=== PATIENT | female | born 1960 | race Caucasian/White ===

== ENCOUNTER 2022-03-07 15:34 | Emergency (ER) | payer MEDICAID, SELFPAY ==
[2022-03-07 15:56] VITALS: BP 121/83; PULSE 101; RESP 18; TEMP 36.7; O2SAT 100
--- NOTE | 2022-03-07 16:21 | ED.SKABFB ---
HPI - Skin/Abscess/Foreign Bdy General Chief complaint: Skin/Abscess/Foreign Body Stated complaint: Rash on chest and back Time Seen by Provider: 03/07/22 16:22 Source: patient and RN notes reviewed Mode of arrival: ambulatory Limitations: no limitations History of Present Illness HPI narrative: 61-year-old female presents to the [facility] with complaints of a rash to her chest and back. Rash started to her lower abdomen where she was doing Lovenox injections. Tried calling her oncologist in [place] and was told to take Benadryl. Has indurated skin to the lower abdomen where she was doing Lovenox injections. Currently going through chemo. Called her oncologist was told to take Benadryl. States her rash keeps getting worse MD complaint: rash Related Data Home Medications Medication Instructions Recorded Confirmed enoxaparin 80 mg/0.8 mL mg 03/07/22 subcutaneous syringe Allergies Allergy/AdvReac Type Severity Reaction Status Date / Time adhesive tape Allergy Rash Verified 03/07/22 16:32 sertraline [From Zoloft] Allergy Swelling Verified 03/07/22 16:32 of Lip/Tongue/Throat Review of Systems Review of Systems: All systems reviewed & are unremarkable except as noted in HPI and below Constitutional: Constitutional: Reports no additional constitutional complaints, Denies chills and Denies fever(s) Eyes: Eyes: Reports no additional eye complaints ENT: Reports system reviewed and no additional complaints, except as documented Cardiovascular: Cardiovascular: Reports no additional cardiovascular complaints Respiratory: Respiratory: Reports no additional respiratory complaints Gastrointestinal: Gastrointestinal: Reports no additional gastrointestinal complaints Musculoskeletal: Musculoskeletal: Reports no additional musculoskeletal complaints Integumentary/Breasts: Skin/Breast: Reports as per HPI and Reports rash Neurologic: Reports system reviewed and no additional complaints, except as documented Psychiatric: Psychiatric: Reports no additional psychiatric complaints Allergic/Immunologic: Allergic/Immunologic: Reports no additional allergic/immunologic complaints PMFSH Comments At the time of my signature, I reviewed and agree with the nursing past medical, surgical, social, and family history. There is no relevant family history pertinent to the patient complaint. Exam Const: General: healthy appearing, no acute distress and alert Nutritional Appearance: well nourished Orientation/consciousness: patient oriented x3 Limitations: no limitations HENMT: Head: normal to inspection Ears: external ears normal Eyes: General: appearance normal, both eyes and all related structures Pupils: Equal, round and reactive pupils present Neck: Neck: normal visual inspection, no lymphadenopathy and no meningeal signs Chest: Chest palpation & inspection: normal inspection of the chest Resp: Effort & Inspection: normal respiratory effort and no use of accessory muscles Auscultation: clear to auscultation bilaterally, no crackles, no rales, no rhonchi and no wheezes Cardio: Rate: regular rate Rhythm: regular rhythm GI: GI Palp: Yes Soft to palpation and No Tenderness to palpation present (GI) Back/Spine/Pelvis: Cervical Spine: normal cervical lordosis Thoracic/Lumbar Spine: thoracic and lumbar spine normal to inspection Skin: General skin exam: normal color Wounds: no wounds Other: Red indurated, peeling without increased warmth to the lower pannus. Hives noted to the abdomen, chest and back that patient describes as extremely itchy. Neuro: General: patient oriented x3, moves all extremities, no meningeal signs and no focal motor deficits Cranial nerves: Yes Equal, round and reactive pupils present Speech: normal speech Gait exam (Neuro): Normal gait present Extrem: General: normal to inspection, full ROM and capillary refill normal Psych: Appearance: grossly normal and well kempt Mental Sta
== END 2022-03-07 16:41 | disposition home or self-care (01) ==
PROVIDERS: Emergency Provider Nurse Practitioner
DX: L50.9 Urticaria, unspecified (principal); L30.9 Dermatitis, unspecified; C78.7 Secondary malignant neoplasm of liver and intrahepatic bile duct; Z85.038 Personal history of other malignant neoplasm of large intestine
CPT/HCPCS: 99203; G0463

== ENCOUNTER 2022-05-14 06:53 | Outpatient (CLI) | payer OTHER, SELFPAY ==
--- NOTE | ~2022-05-14 | XR_ITS ---
EXAM: XR hand RT min 3V DATE: 05/14/2022 07:23 HISTORY: arthritis of hand, SWELLING 3RD DIGIT, GENERAL PAIN . COMPARISON: None available. FINDINGS: Slightly decreased mineralization. No fracture or dislocation. No lytic or blastic lesion. Osteoarthritic changes in the DIP and PIP joints of the fingers, the first interphalangeal joint, an d the trapezium metacarpal joint. No erosion or periosteal change. Soft tissues within normal limits. IMPRESSION: Polyarticular osteoarthritis of the right hand. Reviewed, dictated and finalized at location K. INFORMATICS
== END 2022-05-14 06:54 | disposition home or self-care (01) ==
PROVIDERS: PCP Physician Assistant; Visit Provider Physician Assistant
DX: M19.041 Primary osteoarthritis, right hand (principal)
CPT/HCPCS: 73130

== ENCOUNTER 2022-10-15 14:50 | Outpatient (CLI) | payer OTHER, SELFPAY ==
--- NOTE | ~2022-10-15 | MM_ITS ---
EXAMINATION: MM screening chung BI w glenys HISTORY: Screening mammogram, family history of breast cancer in her mother. TECHNIQUE: Craniocaudal and mediolateral oblique 3-D tomosynthesis images were obtained and synthetic 2-D images were generated. CAD analysis was submitted and interpreted. COMPARISON: No prior mammogram is available for comparison at this institution. BREAST PARENCHYMAL COMPOSITION: There are scattered areas of fibroglandular density. FINDINGS: RIGHT BREAST: There is a possible mass in the middle third of the central breast in line with the nip ple axis. LEFT BREAST: An asymmetry is present in the middle third of the breast in line with the nipple axis o n the craniocaudal view. IMPRESSION: 1. Bilateral breast findings as above. which may represent the patient's baseline however no comparis on is currently available. 2. Comparison with prior mammograms is necessary. BI-RADS Category 0: Incomplete: Needs comparison with prior mammograms. Reviewed, dictated and finalized at location A. IMPRESSION: 1. Bilateral breast findings as above. which may represent the patient's baseli ne however no comparison is currently available. 2. Comparison with prior mammograms is necessary. BI-RADS Category 0: Incomplete: Needs comparison with prior mammograms.
== END 2022-10-15 14:51 | disposition home or self-care (01) ==
LOC: ANHIMG 14:52
PROVIDERS: PCP Physician Assistant; Visit Provider Physician Assistant
DX: Z12.31 Encounter for screening mammogram for malignant neoplasm of breast (principal); R92.8 Other abnormal and inconclusive findings on diagnostic imaging of breast
CPT/HCPCS: 77063; 77067

== ENCOUNTER 2023-12-11 10:53 | Emergency (ER) | payer MEDICARE, MEDICAID, SELFPAY ==
--- NOTE | ~2023-12-11 | CT_ITS ---
EXAMINATION: CT cervical spine wo con DATE: 12/11/2023 11:17 INDICATION: Fall with neck pain TECHNIQUE: Computed tomography (CT) of the cervical spine was performed without intravenous contrast. Automated exposure control and iterative reconstruction technique were employed. The dose-length pro duct was 430.50 mGy-cm. COMPARISON: None FINDINGS: Moderate atlantoaxial osteoarthritis. Mild lower cervical kyphosis and 1 mm retrolisthesis C6 on C7. Vertebral body heights are normal. No acute fracture. Moderate disc height loss at C5-C6 and mild dis c height loss at C4-C5 and C7-T1. Mild biapical pleural-parenchymal scarring. Cervical soft tissues a re unremarkable. The following disc levels are specifically discussed: C2-C3: The disc does not extend beyond the endplate margin. There is mild right uncovertebral joint o steoarthritis. There is severe bilateral facet joint osteoarthritis. There is minimal right neural fo raminal stenosis. There is no central canal stenosis. C3-C4: Small central disc protrusion. There is mild right uncovertebral joint osteoarthritis. There i s severe bilateral facet joint osteoarthritis. There is mild left and minimal right neural foraminal stenosis. There is minimal central canal stenosis. C4-C5: Disc is mildly bulging. There is mild bilateral uncovertebral joint osteoarthritis. There is m ild right and severe left facet joint osteoarthritis. There is mild left neural foraminal stenosis. T here is mild central canal stenosis. C5-C6: Posterior disc osteophyte complex. There is moderate right and severe left uncovertebral joint osteoarthritis. There is moderate bilateral facet joint osteoarthritis. There is mild bilateral neur al foraminal stenosis. There is mild central canal stenosis. C6-C7: Posterior disc osteophyte complex. There is moderate left and severe right uncovertebral joint osteoarthritis. There is mild bilateral facet joint osteoarthritis. There is mild bilateral neural f oraminal stenosis. There is mild central canal stenosis. C7-T1: The disc does not extend beyond the endplate margin. There is mild bilateral uncovertebral kenneth nt osteoarthritis. There is mild right and moderate left facet joint osteoarthritis. There is no neur al foraminal stenosis. There is no central canal stenosis. IMPRESSION: 1. Mild cervical kyphosis with moderate spondylosis. No acute osseous abnormality. Reviewed, dictated and finalized at location B. IMPRESSION: 1. Mild cervical kyphosis with moderate spondylosis. No acute osseous abnormali ty.
--- NOTE | ~2023-12-11 | XR_ITS ---
EXAMINATION: XR knee RT min 4V, XR knee LT min 4V DATE: 12/11/2023 11:31 INDICATION: Bilateral knee pain post fall with laceration and limited range of motion at the right kn ee TECHNIQUE: 1. Anteroposterior, sunrise, oblique and crosstable lateral views of the right knee were obtained. 2. Anteroposterior, sunrise, oblique and crosstable lateral views of the left knee were obtained. COMPARISON: None. FINDINGS: Alignment is normal at both knees. No fracture. No joint effusion/layering lipohemarthrosis at eithe r knee. Joint spaces appear relatively preserved in all 3 compartments of both knees. And mild joint space narrowing at the medial compartments of both knees and tiny marginal osteophytes at the bilater al patellae consistent with mild osteoarthritis. Soft tissues are unremarkable. IMPRESSION: 1. Mild osteoarthritis at the bilateral medial and patellofemoral compartments. No joint effusions or acute osseous abnormality at either knee. Reviewed, dictated and finalized at location B. IMPRESSION: 1. Mild osteoarthritis at the bilateral medial and patellofemoral compartments. No joint effusions or acute osseous abnormality at either knee.
--- NOTE | ~2023-12-11 | CT_ITS ---
EXAMINATION: CT brain wo con DATE: 12/11/2023 11:17 INDICATION: Fall. TECHNIQUE: Computed tomography (CT) of the head was performed without intravenous contrast. The mA wa s adjusted according to patient size. Iterative reconstruction technique was employed. The dose-lengt h product was 605.33 mGy-cm. COMPARISON: None FINDINGS: There is no intracranial hemorrhage, acute infarction, or abnormal intracranial mass lesion . The ventricles are normal in size. There is a right frontal scalp hematoma. There is mild mucosal t hickening in the paranasal sinuses. The orbits are normal. The mastoid air cells are normal. IMPRESSION: 1. Normal brain. Reviewed, dictated and finalized at location A. IMPRESSION: 1. Normal brain.
--- NOTE | ~2023-12-11 | CT_ITS ---
EXAMINATION: CT facial bones wo con DATE: 12/11/2023 11:55 INDICATION: Facial trauma post fall TECHNIQUE: Computed tomography (CT) of the facial bones and maxillofacial region was performed withou t intravenous contrast. Coronal reconstructions were obtained. Automated exposure control and iterati ve reconstruction technique were employed. The dose-length product was 247.93 mGy-cm. COMPARISON: None. FINDINGS: Moderate-sized right frontal scalp hematoma with soft tissue swelling extending into the preseptal so ft tissues of the right orbit. Orbits appear intact. No post septal inflammatory stranding. No maxill ofacial fractures identified. Specifically the nasal bones, zygomatic arches, mandible and dubon of t he orbits and paranasal sinuses are intact. Nasal septum is midline. Minimal mucoperiosteal thickenin g scattered in the paranasal sinuses. There cavities and visualized portions of the mastoid air cells are clear. Severe osteoarthritis at the atlantoaxial articulation. Minimal stranding in the subcutan eous fat in the left infrahilar region consistent with additional posttraumatic contusion. IMPRESSION: 1. No acute osseous abnormality. Reviewed, dictated and finalized at location B.
--- NOTE | ~2023-12-11 | XR_ITS ---
EXAMINATION: XR shoulder RT min 2V DATE: 12/11/2023 11:31 INDICATION: Right shoulder injury. Fall. TECHNIQUE: 4 views of right shoulder were obtained. COMPARISON: None. FINDINGS: Alignment is normal. No fracture. There is mild osteoarthritis of acromioclavicular joint. Glenohumeral joint is normal. IMPRESSION: 1. Mild acromioclavicular joint osteoarthritis. Reviewed, dictated and finalized at location A.
[2023-12-11 11:45] VITALS: BP 115/79; PULSE 84; RESP 18; TEMP 36.8; O2SAT 97
--- NOTE | 2023-12-11 11:50 | PC.NURSE ---
Pt returned from Radiology. Ecchymosis to right eye purple/blue in color with swelling to right eye orbit & eye lids. Denies visual changes. Pupil equal & reactive. Abrasion to right forehead with small laceration, no active bleeding. Abrasion to right shoulder, bilateral knees. CMS intact. Pt currently under treatment for rectal cancer with metastasis to liver & lungs. Taking Eliques for DVT to left lower leg.
--- NOTE | 2023-12-11 12:00 | ED.GENADULT ---
HPI - General Adult General Chief complaint: Fall Stated complaint: fall Time Seen by Provider: 12/11/23 11:21 History of Present Illness HPI narrative: Patient is a 63-year-old female who presents emergency department with chief complaint of fall. Patient reports last night she tripped fell forward struck her face and head and reports she has pain in her neck right shoulder bilateral knees patient reports she has bruising around her right orbit Related Data Home Medications Medication Instructions Recorded Confirmed enoxaparin 80 mg/0.8 mL mg 03/07/22 subcutaneous syringe Allergies Allergy/AdvReac Type Severity Reaction Status Date / Time adhesive tape Allergy Rash Verified 03/07/22 16:32 sertraline [From Zoloft] Allergy Swelling Verified 03/07/22 16:32 of Lip/Tongue/Throat Review of Systems Review of Systems: A 10 system review of systems was completed on the patient and is negative except for what is stated in the HPI. Nursing and ancillary documentation was reviewed. Exam Narrative: GENERAL: Well-appearing, well-nourished, and in no acute distress. HEAD: Normocephalic, bruising around right orbit. EYES: PERRLA and EOMI. No subconjunctival hemorrhage ENT: Nares clear, no rhinorrhea or epistaxis. Mucous membranes moist. NECK: Supple. CHEST: Clear to auscultation. No respiratory distress. HEART: Regular rate and rhythm. No murmur heard. Normal peripheral pulses. ABDOMEN: Soft, nontender, nondistended, normal active bowel sounds. EXTREMITIES: Normal range of motion. No edema. Abrasion present the right lower extremity at the knee tenderness the right shoulder SKIN: Warm, dry, no rash. NEURO: No focal deficits. Alert and oriented x3. PSYCH: Normal mood and affect. Medical Decision Making MDM Narrative Medical decision making narrative: Differential diagnosis includes intracranial injury, facial fracture, cervical spine fracture shoulder fracture/contusion abrasion/contusion/fracture of bilateral knees Patient is currently alert oriented GCS 15 CT facial bones showed no evidence of fracture CT head CT C-spine showed no acute abnormalities shoulder x-ray showed no fracture bilateral knee x-ray showed a fracture Discharge Plan Discharge Clinical Impression: Head injury, Contusion of face, Abrasion of both knees, Contusion of knee, right, Ground-level fall Patient Disposition: Home, Self-Care Condition: Stable Instructions: Antibiotic Form, Concussion (ED), Head Injury (ED), Abrasion (ED) Prescriptions: No Action enoxaparin 80 mg/0.8 mL syringe prednisone 20 mg tablet See Rx Instructions .ROUTE .COMPLEX Qty: 9 0RF Rx Instructions: Take 40 mg daily for 3 days, 20 mg daily for 3 days nystatin 100,000 unit/gram cream 1 applic topical TID Qty: 15 0RF Follow-up/Referrals: Isma,QUIQUE Brennan [Primary Care Provider] - Time of Disposition: 12:13
[2023-12-11] MEDS: ACETAMINOPHEN 500 MG TABLET 1000 MG PO (12:22)
[2023-12-11 12:28] VITALS: BP 129/75; PULSE 82; RESP 20; O2SAT 97
== END 2023-12-11 12:31 | disposition home or self-care (01) ==
LOC: ANHED 12:15
PROVIDERS: Emergency Provider Emergency Medicine; PCP Physician Assistant
DX: S05.11XA Contusion of eyeball and orbital tissues, right eye, initial encounter (principal); S80.01XA Contusion of right knee, initial encounter; S80.212A Abrasion, left knee, initial encounter; S80.211A Abrasion, right knee, initial encounter; M19.011 Primary osteoarthritis, right shoulder; M17.0 Bilateral primary osteoarthritis of knee; M40.202 Unspecified kyphosis, cervical region; M47.812 Spondylosis without myelopathy or radiculopathy, cervical region; W01.0XXA Fall on same level from slipping, tripping and stumbling without subsequent striking against object, initial encounter
CPT/HCPCS: 70450; 70486; 72125; 73030; 73564; 99284; A9270